=== PATIENT | female | born 1965 | race Caucasian/White ===

== ENCOUNTER 2024-10-15 22:13 | Emergency (ER) | payer BC ==
[~2024-10-15] VITALS: Ht 175.3 cm; Wt 75.0 kg
[2024-10-15 22:31] VITALS: TEMP 98.3
[2024-10-15] MEDS ORDERED: NS 1,000 ML IV ONE (22:45)
[2024-10-15] MEDS ORDERED: Morphine 4 MG/ML VIAL IV ONE ×2 (22:45→23:45)
[2024-10-15] MEDS ORDERED: Ondansetron 4 MG/2 ML VIAL IV ONE (22:45)
[2024-10-15 22:56] LABS: BASO # 0.1 K/mm3 (0.0-0.2); BASO % 0.6 % (0.0-2.0); EOS # 0.4 K/mm3 (0.0-0.7); EOS % 4.5 % (0.0-4.0); GRAN # 4.8 K/mm3 (1.4-6.5); GRAN % 53.8 % (42.2-75.2); HEMATOCRIT 40.8 % (37.0-47.0); HEMOGLOBIN 13.6 g/dl (12.5-16.0); LYMPH # 2.7 K/mm3 (1.2-3.4); LYMPH % 30.6 % (20.0-51.0); MEAN CELL VOLUME 100 fl (80.0-100.0); MEAN CORPUSCULAR HEMOGLOBIN 33 pg (27-31); MEAN CORPUSCULAR HGB CONC 33 g/dl (33.0-37.0); MEAN PLATELET VOLUME 9.8 fl (7.4-10.4); MONO # 0.9 K/mm3 (0.1-0.6); MONO % 10.2 % (1.7-9.3); PLATELET COUNT 304 K/mm3 (130-400); RED BLOOD COUNT 4.07 M/mm3 (4.10-5.30); REDCELL DISTRIBUTION WIDTH-CV 11.7 % (11.5-14.5)
[2024-10-15 23:16] LABS: ALBUMIN 4.1 g/dL (3.5-5.0); BILIRUBIN,TOTAL 0.4 mg/dL (0.2-1.2); CALCIUM 9.9 mg/dL (8.4-10.2); CREATININE, serum 1.11 mg/dL (0.57-1.11); POTASSIUM 3.8 mEq/L (3.5-4.5); TOTAL PROTEIN 7.2 g/dl (6.2-8.1)
[2024-10-15 23:24] LABS: URINE APPEARANCE CLOUDY (CLEAR/HAZY); URINE BLOOD 3+ (NEGATIVE); URINE COLOR YELLOW (YELLOW); URINE GLUCOSE NEGATIVE (NEGATIVE); URINE KETONE NEGATIVE (NEGATIVE); URINE NITRATE NEGATIVE (NEGATIVE); URINE PROTEIN(semi-quant) 1+ (NEGATIVE)
[2024-10-15 23:25] LABS: COLLECTION METHOD CLEAN CATCH; URINE BACTERIA RARE /hpf (NONE SEEN); URINE CALCIUM OXALATE CRYSTAL PRESENT (NOT PRESENT); URINE RBC >50 /hpf (0-2); URINE WBC 20-50 /hpf (0-2)
[2024-10-15] MEDS ORDERED: Ketorolac 15 MG/ML VIAL IV ONE (23:45)
[2024-10-16] MEDS ORDERED: Iohexol 300 - 100 ML VIAL IV ONE (00:09)
[2024-10-16] MEDS ORDERED: NS 100 ML IV ONE (00:10)
[2024-10-16] MEDS ORDERED: Home HYDROcodone/Acetaminophen 5/325 MG #4 TABS/PACK PO ONE (00:45)
[2024-10-16] MEDS ORDERED: cefTRIAXone 2 G in Water For Injection,Sterile 20 ML IV ONE (00:45)
[2024-10-16] MEDS ORDERED: NORCO 325 MG-51 TAB PO (01:23)
[2024-10-16 01:25] VITALS: BP 138/94; PULSE 80
== END 2024-10-16 01:31 | disposition home or self-care (01) ==
LOC: COL.ER 22:13
PROVIDERS: Emergency Medicine
DX: N13.2 Hydronephrosis with renal and ureteral calculous obstruction (principal); N39.0 Urinary tract infection, site not specified
CPT/HCPCS: J0696; J1885; J2270; J2405; J7030; Q9967